=== PATIENT | female | born 1980 | race Hispanic/Latino ===

== ENCOUNTER 2017-01-30 18:28 | Emergency (ER) | payer OTHER ==
[~2017-01-30] VITALS: Ht 162.6 cm; Wt 65.0 kg
[~2017-01-30 18:28] MED LIST: ACYC400T2 PO; HYDR-4003 PO; ONDA4TAB9 PO; PREN1TAB47 PO
[2017-01-30 18:49] VITALS: BP 126/85; PULSE 88; RESP 14; O2SAT 99
--- NOTE | 2017-01-30 19:01 | ED.REPORT ---
HPI-Back Pain Under 40 Date of Service January 30, 2017 ED Provider: Barron Espinoza DO 36 y/o female with no pertinent hx presents to the ED complaining of sharp back pain, onset 3 days ago. The pt states she bent forward while at work and then again getting out of her car. Any for flexion of the low back causes rather severe as side joint pain.. The pain is localized to the sacral region. She states her pain is the worst when she stands up after driving for a while. She is concerned about her pain as she is going on a road trip tomorrow. The pt denies dysuria and chance of . Nursing Notes Stated Complaint: LOWER BACK PAIN Chief Complaint: Back Pain or Injury Nursing Notes Reviewed: Yes Allergies: Coded Allergies: fluconazole (Verified Allergy, Severe, Anaphylaxis, 01/30/17) Scheduled Acyclovir (Acyclovir) 400 Mg Tablet 400 MG PO TID Vit/Fe Fumarate/Fa-Expunged Drug, Do (-Expunged Drug, Do Not Renew!) 1 Tab Tablet PO DAILY Scheduled PRN Hydrocodone-Acetaminophen 5-325 mg (Hydrocodone-Acetaminophen 5-325 mg) 1 Each Tablet 1 TABLET PO Q4H PRN PRN For Pain Ondansetron ODT (Zofran ODT) 4 Mg Tablet 4 MG PO Q4H PRN PRN For Nausea General Time Seen by MD: 18:59 Chief Complaint Back pain Hx Obtained From: Patient Arrived By: Walk-in Sudden in Onset?: Yes Onset Occurred: 3 days ago Symptom Duration: Since onset Location: : Spinal sacroiliac area Quality: Painful Radiation: : Does not radiate Severity: Current: Moderate Severity: Maximum: Moderate Recent Healthcare: No recent doctor visit Similar Sx Previous: No Past Medical History Past Medical History Denies Past Surgical History Denies Smoking History Unknown if Ever Smoker Social History Other Social History: Good social support Ambulatory Status Independent Review of Systems Female: Denies: Dysuria Musculoskeletal: Reports: Back pain Complete sys rev & neg: except as marked. Physical Exam Initial Vital Signs Vital Signs (First) Date Time Temp Pulse Resp B/P Pulse Ox O2 Delivery O2 Flow Rate FiO2 01/30/17 18:49 36.8 88 14 126/85 99 Room Air Initial VS: Reviewed, Vital signs normal Head / Eyes: Atraumatic, Normocephalic Neck: Supple, Full range of motion Respiratory: Breath sounds normal, Clear to auscultation, No respiratory distress Cardiovascular: Regular rate & rhythm, Heart sounds normal, Intact distal pulses Abdomen / GI: Soft, Non-tender Extremities: Vascular intact, Neuro intact, No swelling, No tenderness Skin: Warm, Dry, No cyanosis General/Constitutional: Awake, Alert, Cooperative Non-tender C-spine and T-spine. Left SI joint tenderness No signs of central cord syndrome. Neurologic: Oriented X3, Speech NL, No motor deficits, No sensory deficits Re-Eval/Medical Decision Med Decision/Clinical Course No midline bony tenderness. Melida and I have decided not to pursue imaging. We will treat her symptomatically. If however she has pain beyond 7 days will consider imaging. Short course of Udall and Naprosyn provided for pain. Outpatient follow-up recommended. Counseled Regarding: Diagnosis, Need for follow-up, When/why to return to ED Discharge & Departure Impression: Primary Impression: Sacroiliac strain Encounter type: initial encounter Qualified Code: S39.012A - Strain of muscle, fascia and tendon of lower back, initial encounter Disposition: Home All VS Reviewed: Yes Condition: Stable Patient Instructions: Low Back Strain (ED) Additional Instructions: I suspect that you have strained your right sacroiliac joint. Rest your low back for a few days. Sit on an inflatable donut while you are driving. Take Naprosyn twice daily with food for the next 3-5 days. Take 1-2 Udall every 6 hours as needed for severe or breakthrough pain. Do not drive or drink alcohol or consume acetaminophen while taking the Udall. If symptoms persist and I do recommend imaging. Set up a follow-up with your primary care physician. Return if any problems or any new or worsening symptoms. Referrals: Dony Phelps PA-C (PCP) Scribe Attestation Portions of this note were transcribed by eDz Garner. I, , personally performed the history, physical exam and medical decision-making;I reviewed and confirmed the accuracy of the information in the transcribed note. Signed by Tammy Cruz. 01/30/17 1929. copies to: Dony Phelps PA-C, Todd P DO January 30, 2017 19:01 Dez Garner January 30, 2017 19:08
[2017-01-30 19:16] VITALS: BP 126/85; PULSE 88; RESP 14; O2SAT 99
== END 2017-01-30 19:30 | disposition home or self-care (01) ==
LOC: SED 18:28
DX: S39.012A Strain of muscle, fascia and tendon of lower back, initial encounter (principal); X50.1XXA Overexertion from prolonged static or awkward postures, initial encounter; Y92.59 Other trade areas as the place of occurrence of the external cause; Y93.89 Activity, other specified; Y99.0 Civilian activity done for income or pay; Z88.3 Allergy status to other anti-infective agents